=== PATIENT | male | born 1990 | race Caucasian/White ===

== ENCOUNTER 2017-06-11 12:25 | Emergency (ER) | payer SELFPAY ==
[~2017-06-11] VITALS: Ht 180.3 cm; Wt 89.8 kg
[2017-06-11 12:55] VITALS: BP 131/79
--- NOTE | 2017-06-11 13:34 | RAD ---
Indication pain. AP oblique and lateral views of the right knee were obtained as well as a sunrise view. No bony abnormality is seen
--- NOTE | 2017-06-11 13:50 | PHYS DOC ---
Past Medical History Past Medical History: No Pertinent History Past Surgical History: No Surgical History Alcohol Use: None Drug Use: None Adult General Chief Complaint Chief Complaint: KNEE INJURY [facility] HPI Patient is a 26 year old male presents to the emergency department stating that he is having right medial knee pain and discomfort. He states that this is occurred since last night. He states he was dancing when he turned and started having increased sharp burning pain. Patient states he has not taken anything for pain and discomfort. He states he has increased pain with trying to bend his knee and straighten his knee completely out. Patient states the knee basically gave out on him today. Patient states he has not taken anything for pain and discomfort. Review of Systems Review of Systems Constitutional: Denies fever or chills [] Eyes: Denies change in visual acuity, redness, or eye pain [] HENT: Denies nasal congestion or sore throat [] Respiratory: Denies cough or shortness of breath [] Cardiovascular: No additional information not addressed in HPI [] GI: Denies abdominal pain, nausea, vomiting, bloody stools or diarrhea [] : Denies dysuria or hematuria [] Musculoskeletal: Denies back pain. Complaint of right knee pain Integument: Denies rash or skin lesions [] Neurologic: Denies headache, focal weakness or sensory changes [] Endocrine: Denies polyuria or polydipsia [] Allergies Allergies Allergies Coded Allergies Type Severity Reaction Last Updated Verified No Known Drug Allergies 06/11/17 No Physical Exam Physical Exam Constitutional: Well developed, well nourished, no acute distress, non-toxic appearance. [] HENT: Normocephalic, atraumatic, bilateral external ears normal, oropharynx moist, no oral exudates, nose normal. [] Eyes: PERRLA, EOMI, conjunctiva normal, no discharge. [] Neck: Normal range of motion, no tenderness, supple, no stridor. [] Cardiovascular:Heart rate regular rhythm Lungs & Thorax: No respiratory distress noted Skin: Warm, dry, no erythema, no rash. [] Back: No tenderness Extremities: Right medial knee tenderness, no cyanosis, no clubbing, ROM intact , no edema. No redness no bruising no swelling. Peripheral pulses 2+ cap refill brisk less than 2 seconds. Neurologic: Alert and oriented X 3, normal motor function, normal sensory function, no focal deficits noted. [] Psychologic: Affect normal, judgement normal, mood normal. [] Current Patient Data Vital Signs Vital Signs Date Time Temp Pulse Resp B/P (MAP) Pulse Ox O2 Delivery O2 Flow Rate FiO2 06/11/17 12:55 97.9 85 18 97 Room Air 97.9 EKG EKG [] Radiology/Procedures Radiology/Procedures [][facility] [address] [place] [address] IMAGING REPORT Signed PATIENT: LOLIS CORDERO ACCOUNT: [id number] : 1990 LOCATION: ER AGE: 26 SEX: M EXAM STATUS: REG ER ORD. PHYSICIAN: RUEL ODOM APRN REASON: knee gave out unable to bear weight PROCEDURE: KNEE RIGHT 4V Indication pain. AP oblique and lateral views of the right knee were obtained as well as a sunrise view. No bony abnormality is seen DICTATED and SIGNED BY: LILY LYONS MD DATE: 06/11/17 1330 CC: RUEL ODOM APRN; NO PCP ~ Course & Med Decision Making Course & Med Decision Making Pertinent Labs and Imaging studies reviewed. (See chart for details) X-rays were negative for any bony abnormalities. Patient will be placed in a knee immobilizer with recommendations for ice packs on 20 minutes off 20 minutes several times a day elevation as much as possible. Also recommended ibuprofen for pain and discomfort. Patient was recommended to follow-up with orthopedic within the next week. Signs symptoms to return back to emergency department as been provided. All questions and concerns have been answered at patient's bedside. [] Dragon Disclaimer Dragon Disclaimer This electronic medical record was generated, in whole or in part, using a voice recognition dictation system. Departure Departure Impression: Primary Impression: Right knee pain Disposition: 01 HOME, SELF-CARE Condition: STABLE Referrals: NO PCP (PCP) Patient Instructions: Knee Immobilizer, [id number], Knee Pain, [id number] Additional Instructions: Activity as tolerated. Wear the knee immobilizer until you follow-up with orthopedic. No dancing or twisting or turning of the right knee and until after he follow- up with orthopedic. Ice packs on 20 minutes off 20 minutes several times a day. Elevation as much as possible. Ibuprofen for pain and discomfort. Follow-up with orthopedic within the next week. Return back to emergency prior signs symptoms of become worse. Problem Qualifiers Primary Impression: Right knee pain Chronicity: acute Qualified Codes: M25.561 - Pain in right knee RUEL ODOM APRN Jun 11, 2017 13:50
== END 2017-06-11 14:04 | disposition home or self-care (01) ==
LOC: ER 12:25
DX: M25.561 Pain in right knee (principal)
CPT/HCPCS: 29505; 73564; 99284-25